=== PATIENT | male | born 1945 | race African-American/Black ===

== ENCOUNTER 2022-07-08 17:05 | Inpatient (IN) ==
[2022-07-08] MEDS ORDERED: Acetaminophen 325 MG TABLET PO PRN (23:06)
[2022-07-08] MEDS ORDERED: Naloxone 0.4 MG/ML INJ IVP PRN (23:06)
[2022-07-08] MEDS ORDERED: Ondansetron 4 MG/2 ML VIAL IVP PRN (23:06)
[2022-07-09] MEDS: lisinopriL 20 MG TABLET PO SCH (09:12)
[2022-07-09] MEDS: Ascorbic Acid 500 MG TABLET PO SCH (09:12)
[2022-07-09] MEDS: NIFEdipine XL (24 HR) 60 MG TAB.ER.24 PO SCH ×2 (09:12→20:23)
[2022-07-09] MEDS: Metoprolol XL (24 HR) Succ 50 MG TAB.ER.24H PO SCH (09:12)
[2022-07-09] MEDS: Aspirin Enteric Coated 81 MG Tablet PO SCH (09:12)
[2022-07-09 11:11] LABS: Hematocrit 44.5 % (37.5-50.1); Hemoglobin 14.7 g/dL (12.9-16.9); Mean Corpuscular Hemoglobin 30.3 pg (28.0-33.3); Mean Corpuscular Volume 91.8 fL (83.0-100.0); Mean Platelet Volume 9.6 fL (9.4-12.4); Platelet Count 354 K/mcL (140-400); Red Blood Count 4.85 M/mcL (4.19-5.50); Red Cell Distribution Width 14.5 % (11.5-14.5); White Blood Count 11.9 K/mcL (4.3-11.1)
[2022-07-09 11:24] LABS: Albumin 3.7 g/dL (3.5-5.7); Albumin/Globulin Ratio 1.1 (1.1-2.2); Bilirubin,Total 0.5 mg/dL (0.3-1.0); Calcium 9.4 mg/dL (8.6-10.3); Globulin 3.3 g/dL (2.4-3.5); Potassium 3.6 mEq/L (3.5-5.1)
[2022-07-09] MEDS: QUEtiapine Fumarate 25 MG TABLET PO PRN (20:23)
[2022-07-10] MEDS: *HR* Enoxaparin 40 MG/0.4 ML SYRINGE SQ SCH (05:08)
[2022-07-10 05:33] LABS: Hematocrit 41.1 % (37.5-50.1); Hemoglobin 13.6 g/dL (12.9-16.9); Mean Corpuscular HGB Conc 33.1 g/dL (31.6-35.5); Mean Corpuscular Hemoglobin 30.6 pg (28.0-33.3); Mean Corpuscular Volume 92.4 fL (83.0-100.0); Mean Platelet Volume 9.9 fL (9.4-12.4); Platelet Count 352 K/mcL (140-400); Red Blood Count 4.45 M/mcL (4.19-5.50); Red Cell Distribution Width 14.6 % (11.5-14.5); White Blood Count 14.1 K/mcL (4.3-11.1)
[2022-07-10 05:48] LABS: Calcium 9.1 mg/dL (8.6-10.3); Magnesium 1.7 mg/dL (1.6-2.6)
[2022-07-10] MEDS: lisinopriL 20 MG TABLET PO SCH (08:16)
[2022-07-10] MEDS: NIFEdipine XL (24 HR) 60 MG TAB.ER.24 PO SCH ×2 (08:17→20:28)
[2022-07-10] MEDS: Metoprolol XL (24 HR) Succ 50 MG TAB.ER.24H PO SCH (08:17)
[2022-07-10] MEDS: Aspirin Enteric Coated 81 MG Tablet PO SCH (08:17)
[2022-07-10] MEDS: Ascorbic Acid 500 MG TABLET PO SCH (08:17)
[2022-07-11 03:59] LABS: Hematocrit 42.8 % (37.5-50.1); Hemoglobin 14.1 g/dL (12.9-16.9); Mean Corpuscular HGB Conc 32.9 g/dL (31.6-35.5); Mean Corpuscular Hemoglobin 30.2 pg (28.0-33.3); Mean Corpuscular Volume 91.6 fL (83.0-100.0); Mean Platelet Volume 9.4 fL (9.4-12.4); Platelet Count 350 K/mcL (140-400); Red Blood Count 4.67 M/mcL (4.19-5.50); Red Cell Distribution Width 14.6 % (11.5-14.5); White Blood Count 13.1 K/mcL (4.3-11.1)
[2022-07-11 04:14] LABS: Calcium 9.1 mg/dL (8.6-10.3); Magnesium 1.7 mg/dL (1.6-2.6); Potassium 3.4 mEq/L (3.5-5.1)
[2022-07-11] MEDS: *HR* Enoxaparin 40 MG/0.4 ML SYRINGE SQ SCH (06:01)
[2022-07-11] MEDS: Metoprolol XL (24 HR) Succ 50 MG TAB.ER.24H PO SCH (08:39)
[2022-07-11] MEDS: Aspirin Enteric Coated 81 MG Tablet PO SCH (08:39)
[2022-07-11] MEDS: NIFEdipine XL (24 HR) 60 MG TAB.ER.24 PO SCH ×2 (08:39→20:35)
[2022-07-11] MEDS: lisinopriL 20 MG TABLET PO SCH (08:39)
[2022-07-11] MEDS: Ascorbic Acid 500 MG TABLET PO SCH (08:39)
[2022-07-12] MEDS: *HR* Enoxaparin 40 MG/0.4 ML SYRINGE SQ SCH (05:20)
[2022-07-12] MEDS: Metoprolol XL (24 HR) Succ 50 MG TAB.ER.24H PO SCH (08:24)
[2022-07-12] MEDS: lisinopriL 20 MG TABLET PO SCH (08:24)
[2022-07-12] MEDS: Ascorbic Acid 500 MG TABLET PO SCH (08:24)
[2022-07-12] MEDS: NIFEdipine XL (24 HR) 60 MG TAB.ER.24 PO SCH ×2 (08:25→19:42)
[2022-07-12] MEDS: Aspirin Enteric Coated 81 MG Tablet PO SCH (08:25)
[2022-07-13] MEDS: *HR* Enoxaparin 40 MG/0.4 ML SYRINGE SQ SCH (05:14)
[2022-07-13 05:21] LABS: Hematocrit 39.6 % (37.5-50.1); Hemoglobin 12.8 g/dL (12.9-16.9); Mean Corpuscular HGB Conc 32.3 g/dL (31.6-35.5); Mean Corpuscular Hemoglobin 30.3 pg (28.0-33.3); Mean Corpuscular Volume 93.6 fL (83.0-100.0); Mean Platelet Volume 9.4 fL (9.4-12.4); Platelet Count 365 K/mcL (140-400); Red Blood Count 4.23 M/mcL (4.19-5.50); Red Cell Distribution Width 14.5 % (11.5-14.5); White Blood Count 12.7 K/mcL (4.3-11.1)
[2022-07-13] MEDS: lisinopriL 20 MG TABLET PO SCH (09:14)
[2022-07-13] MEDS: NIFEdipine XL (24 HR) 60 MG TAB.ER.24 PO SCH ×2 (09:14→19:52)
[2022-07-13] MEDS: Aspirin Enteric Coated 81 MG Tablet PO SCH (09:14)
[2022-07-13] MEDS: Metoprolol XL (24 HR) Succ 50 MG TAB.ER.24H PO SCH (09:14)
[2022-07-13] MEDS: Ascorbic Acid 500 MG TABLET PO SCH (09:14)
[2022-07-13 11:57] LABS: Calcium 9.2 mg/dL (8.6-10.3); Magnesium 1.9 mg/dL (1.6-2.6)
[2022-07-14] MEDS: *HR* Enoxaparin 40 MG/0.4 ML SYRINGE SQ SCH (05:11)
[2022-07-14] MEDS: Metoprolol XL (24 HR) Succ 50 MG TAB.ER.24H PO SCH (08:15)
[2022-07-14] MEDS: lisinopriL 20 MG TABLET PO SCH (08:15)
[2022-07-14] MEDS: NIFEdipine XL (24 HR) 60 MG TAB.ER.24 PO SCH ×2 (08:15→20:13)
[2022-07-14] MEDS: Ascorbic Acid 500 MG TABLET PO SCH (08:16)
[2022-07-14] MEDS: Aspirin Enteric Coated 81 MG Tablet PO SCH (08:16)
[2022-07-15 04:42] LABS: Hematocrit 40.7 % (37.5-50.1); Hemoglobin 13.4 g/dL (12.9-16.9); Mean Corpuscular HGB Conc 32.9 g/dL (31.6-35.5); Mean Corpuscular Hemoglobin 30.5 pg (28.0-33.3); Mean Corpuscular Volume 92.7 fL (83.0-100.0); Mean Platelet Volume 9.3 fL (9.4-12.4); Platelet Count 398 K/mcL (140-400); Red Blood Count 4.39 M/mcL (4.19-5.50); Red Cell Distribution Width 14.4 % (11.5-14.5); White Blood Count 12.7 K/mcL (4.3-11.1)
[2022-07-15 05:02] LABS: Calcium 9.4 mg/dL (8.6-10.3); Magnesium 1.9 mg/dL (1.6-2.6); Potassium 4.1 mEq/L (3.5-5.1)
[2022-07-15] MEDS: *HR* Enoxaparin 40 MG/0.4 ML SYRINGE SQ SCH (05:37)
[2022-07-15] MEDS: NIFEdipine XL (24 HR) 60 MG TAB.ER.24 PO SCH ×2 (08:15→19:42)
[2022-07-15] MEDS: Ascorbic Acid 500 MG TABLET PO SCH (08:15)
[2022-07-15] MEDS: Metoprolol XL (24 HR) Succ 50 MG TAB.ER.24H PO SCH (08:15)
[2022-07-15] MEDS: Aspirin Enteric Coated 81 MG Tablet PO SCH (08:15)
[2022-07-15] MEDS: lisinopriL 20 MG TABLET PO SCH (08:15)
[2022-07-16] MEDS: *HR* Enoxaparin 40 MG/0.4 ML SYRINGE SQ SCH (05:31)
[2022-07-16] MEDS: Aspirin Enteric Coated 81 MG Tablet PO SCH (08:42)
[2022-07-16] MEDS: lisinopriL 20 MG TABLET PO SCH (08:42)
[2022-07-16] MEDS: Metoprolol XL (24 HR) Succ 50 MG TAB.ER.24H PO SCH (08:42)
[2022-07-16] MEDS: NIFEdipine XL (24 HR) 60 MG TAB.ER.24 PO SCH ×2 (08:42→19:47)
[2022-07-16] MEDS: Ascorbic Acid 500 MG TABLET PO SCH (08:43)
[2022-07-16] MEDS: Melatonin 3 MG TABLET PO PRN (19:47)
[2022-07-16] MEDS: QUEtiapine Fumarate 25 MG TABLET PO PRN (19:48)
[2022-07-17] MEDS: *HR* Enoxaparin 40 MG/0.4 ML SYRINGE SQ SCH (06:28)
[2022-07-17] MEDS: Metoprolol XL (24 HR) Succ 50 MG TAB.ER.24H PO SCH (08:18)
[2022-07-17] MEDS: NIFEdipine XL (24 HR) 60 MG TAB.ER.24 PO SCH ×2 (08:18→19:51)
[2022-07-17] MEDS: Ascorbic Acid 500 MG TABLET PO SCH (08:18)
[2022-07-17] MEDS: lisinopriL 20 MG TABLET PO SCH (08:18)
[2022-07-17] MEDS: Aspirin Enteric Coated 81 MG Tablet PO SCH (08:18)
[2022-07-17 19:15] VITALS: RESP 14
[2022-07-17] MEDS: Melatonin 3 MG TABLET PO PRN (19:51)
[2022-07-17] MEDS: QUEtiapine Fumarate 25 MG TABLET PO PRN (19:52)
[2022-07-18] MEDS: *HR* Enoxaparin 40 MG/0.4 ML SYRINGE SQ SCH (06:14)
[2022-07-18 07:09] VITALS: BP 111/58; PULSE 74; TEMP 97.8; O2SAT 94
[2022-07-18] MEDS: Aspirin Enteric Coated 81 MG Tablet PO SCH (08:22)
[2022-07-18] MEDS: NIFEdipine XL (24 HR) 60 MG TAB.ER.24 PO SCH (08:22)
[2022-07-18] MEDS: Metoprolol XL (24 HR) Succ 50 MG TAB.ER.24H PO SCH (08:22)
[2022-07-18] MEDS: Ascorbic Acid 500 MG TABLET PO SCH (08:22)
[2022-07-18] MEDS: lisinopriL 20 MG TABLET PO SCH (08:22)
== END 2022-07-18 13:00 | disposition home or self-care (01) | DRG 65 ==
LOC: INPGRE 22:04
PROVIDERS: ADMIT Family Medicine; ATTEND Family Medicine